=== PATIENT | female | born 1985 | race Caucasian/White ===

== ENCOUNTER 2017-04-06 02:20 | Emergency (ER) | payer MEDICAID ==
[~2017-04-06] VITALS: Ht 162.6 cm; Wt 99.8 kg
[2017-04-06 02:48] VITALS: BP 133/74
[2017-04-06 03:35] LABS: Basophils # (auto) 0 uL; Basophils % (auto) 0.4 % (0.0-2.0); CONDITION Y; Eosinophils # (auto) 0.1 uL; Eosinophils % (auto) 1.1 % (0.0-7.0); Hematocrit 42.2 % (36.0-46.0); Hemoglobin 14.1 g/dL (12.2-16.2); Lymphocytes # (auto) 1.6 uL; Lymphocytes % (auto) 12.4 % (10.0-50.0); Mean Corpuscular Hemoglobin 31.4 pg (28.0-32.0); Mean Corpuscular Hgb Conc. 33.3 g/dL (32.0-36.0); Mean Corpuscular Volume 94.4 fL (80.0-100.0); Mean Platelet Volume 9.2 fL (7.4-10.4); Monocytes # (auto) 0.6 uL; Monocytes % (auto) 4.4 % (0.0-12.0); Neutrophils # (auto) 10.6 uL; Neutrophils % (auto) 81.7 % (37.0-80.0); Platelet Count (auto) 264 10^3/uL (140-450); Red Cell Distribution Width 13.7 % (11.6-16.0); White Blood Cell 12.9 10^3/uL (4.4-10.8)
[2017-04-06 03:44] LABS: Albumin 3.4 g/dL (3.4-5.0); BUN/Creatinine Ratio 18.2; Calcium 8.3 mg/dL (8.5-10.1); Potassium 3.8 mmol/L (3.5-5.1)
[2017-04-06 03:46] LABS: Bilirubin, Total 0.3 mg/dL (0.2-1.0); Total Protein 7.2 g/dL (6.4-8.2)
== END 2017-04-06 12:25 | disposition left against medical advice (07) ==
LOC: EDBD 02:20 → ER 02:20
DX: R10.13 Epigastric pain (principal); Z53.21 Procedure and treatment not carried out due to patient leaving prior to being seen by health care provider
CPT/HCPCS: 36415; 80053; 82150; 83690; 85025

== ENCOUNTER 2019-08-11 15:12 | Emergency (ER) | payer MEDICAID ==
[~2019-08-11] VITALS: Ht 170.2 cm; Wt 113.4 kg
[2019-08-11 15:30] VITALS: BP 178/68
[2019-08-11] MEDS ORDERED: IBUPROFEN 800 MG TAB PO ONE (17:45)
== END 2019-08-11 17:59 | disposition home or self-care (01) ==
LOC: ER 15:12 → EDBD 15:12 → ER 17:58
DX: S16.1XXA Strain of muscle, fascia and tendon at neck level, initial encounter (principal); S46.912A Strain of unspecified muscle, fascia and tendon at shoulder and upper arm level, left arm, initial encounter; F17.210 Nicotine dependence, cigarettes, uncomplicated; V43.52XA Car driver injured in collision with other type car in traffic accident, initial encounter; Y93.I9 Activity, other involving external motion; Y92.488 Other paved roadways as the place of occurrence of the external cause; Y99.8 Other external cause status
CPT/HCPCS: 72040; 73030

== ENCOUNTER 2021-11-29 11:45 | Inpatient (IN) | payer MEDICAID ==
[~2021-11-29] VITALS: Ht 162.6 cm; Wt 89.2 kg
[2021-11-29] VITALS (7 sets, daily range): BP systolic 117–128; BP diastolic 55–72
[2021-11-29] MEDS ORDERED: SODIUM CHLORIDE 0.9% 1,000 ML IV ONE ×2 (12:45→13:45)
[2021-11-29] MEDS ORDERED: SODIUM CHLORIDE 0.9% 500 ML IVB ONE (12:45)
[2021-11-29] MEDS ORDERED: METOCLOPRAMIDE HCL 5MG/ml INJ 2ml VIAL IV ONE (12:45)
[2021-11-29 13:47] LABS: Urine Bacteria NONE SEEN /hpf (None Seen); Urine Blood Negative /uL (Negative); Urine Specific Gravity 1.018 (1.001-1.035); Urine WBC 1 /hpf (0 - 5)
[2021-11-29 13:48] LABS: Basophils # (auto) 0.1 10 ^3/uL (0-0.2); Basophils % (auto) 0.7 % (0.0-2.0); Eosinophils # (auto) 0 10 ^3/uL (0-0.8); Eosinophils % (auto) 0.4 % (0.0-7.0); Hematocrit 27.4 % (36.0-46.0); Hemoglobin 8.2 g/dL (12.2-16.2); Lymphocytes # (auto) 1.6 10 ^3/uL (0.4-5.4); Lymphocytes % (auto) 16.9 % (10.0-50.0); Mean Corpuscular Hemoglobin 19.5 pg (28.0-32.0); Mean Corpuscular Hgb Conc. 29.8 g/dL (32.0-36.0); Mean Corpuscular Volume 65.7 fL (80.0-100.0); Monocytes # (auto) 0.5 10 ^3/uL (0-1.3); Monocytes % (auto) 4.6 % (0.0-12.0); Neutrophils # (auto) 7.5 10 ^3/uL (1.6-8.6); Neutrophils % (auto) 77.4 % (37.0-80.0); Red Blood Cells 4.18 10^6/uL (4.0-5.20); White Blood Cell 9.7 10^3/uL (4.4-10.8)
[2021-11-29 14:03] LABS: Albumin 3.7 g/dL (3.4-5.0); BUN/Creatinine Ratio 20.6; Calcium 9.2 mg/dL (8.5-10.1); Potassium 4.6 mmol/L (3.5-5.1)
[2021-11-29 14:05] LABS: Bilirubin, Total 0.4 mg/dL (0.2-1.0); Total Protein 7.5 g/dL (6.4-8.2)
[2021-11-29 14:12] LABS: Magnesium 2.3 mg/dL (1.6-2.6)
[2021-11-29] MEDS ORDERED: MORPHINE SULFATE 4 MG/ML SYR/VIAL IV ONE ×3 (15:45→18:15)
[2021-11-29] MEDS ORDERED: IOHEXOL 300 MG/ML 100ML BOTTLE IJ ONE (15:47)
[2021-11-29] MEDS ORDERED: metroNIDAZOLE 500MG/100ML 100 ML IV ONE (17:00)
[2021-11-29] MEDS ORDERED: cefTRIAXone 1GM/50ML D5W 50 ML IV ONE (17:00)
[2021-11-29] MEDS ORDERED: NITROGLYCERIN 0.4 MG SL TAB SL PRN (17:15)
[2021-11-29] MEDS ORDERED: MORPHINE SULFATE INJECTION 2 MG/ML SYRG IV PRN (17:15)
[2021-11-29] MEDS: SODIUM CHLORIDE 0.9% 1,000 ML IV SCH ×2 (17:42→22:00)
[2021-11-29] MEDS ORDERED: ONDANSETRON HCL 4 MG/2 ML VIAL IV PRN (17:45)
[2021-11-29] MEDS ORDERED: ONDANSETRON HCL 4 MG/2 ML VIAL IV ONE (18:00)
[2021-11-29] MEDS ORDERED: PROMETHAZINE HCL 25 MG/ML 1ML IV ONE (18:15)
[2021-11-29] MEDS: PIPERACILLIN-TAZOB 3.375GM 100 ML IV SCH (22:00)
[2021-11-30] VITALS (37 sets, daily range): BP systolic 94–128; BP diastolic 43–81
[2021-11-30 05:44] LABS: Basophils # (auto) 0 10 ^3/uL (0-0.2); Eosinophils # (auto) 0.1 10 ^3/uL (0-0.8); Mean Corpuscular Hemoglobin 20.2 pg (28.0-32.0); Monocytes # (auto) 0.6 10 ^3/uL (0-1.3); Nucleated Red Blood Cells % 0.1 %; Red Blood Cells 3.48 10^6/uL (4.0-5.20)
[2021-11-30] MEDS: PIPERACILLIN-TAZOB 3.375GM 100 ML IV SCH ×3 (05:47→21:41)
[2021-11-30 05:49] LABS: Calcium 8.1 mg/dL (8.5-10.1); Potassium 3.3 mmol/L (3.5-5.1)
[2021-11-30 05:52] LABS: Bilirubin, Total 0.3 mg/dL (0.2-1.0); Total Protein 6.1 g/dL (6.4-8.2)
[2021-11-30 06:02] LABS: Basophils % (auto) 0.5 % (0.0-2.0); Eosinophils % (auto) 1.3 % (0.0-7.0); Hematocrit 22.6 % (36.0-46.0); Hemoglobin 7.1 g/dL (12.2-16.2); Lymphocytes # (auto) 2.1 10 ^3/uL (0.4-5.4); Mean Corpuscular Hgb Conc. 31.2 g/dL (32.0-36.0); Mean Corpuscular Volume 64.9 fL (80.0-100.0); Monocytes % (auto) 7.2 % (0.0-12.0); Neutrophils # (auto) 5.3 10 ^3/uL (1.6-8.6); Red Cell Distribution Width 18.2 % (11.8-14.3); White Blood Cell 8.2 10^3/uL (4.4-10.8)
[2021-11-30] MEDS: POTASSIUM CHL 10MEQ/50ML 50 ML IV SCH ×2 (08:02→08:45)
[2021-11-30] MEDS: MORPHINE SULFATE 4 MG/ML SYR/VIAL IV PRN ×2 (08:54→19:07)
[2021-11-30] MEDS: SODIUM CHLORIDE 0.9% 1,000 ML IV SCH ×3 (10:09→20:30)
[2021-11-30] MEDS ORDERED: D5W/ SOD CHL 0.9%/KCL 20MEQ 1,000 ML IV SCH (10:15)
[2021-11-30] MEDS ORDERED: GASTROGRAFIN 120 ML SOL ONE (16:05)
[2021-12-01] VITALS (11 sets, daily range): BP systolic 111–130; BP diastolic 55–76
[2021-12-01] MEDS: MORPHINE SULFATE 4 MG/ML SYR/VIAL IV PRN (03:01)
[2021-12-01 04:51] LABS: Basophils # (auto) 0.1 10 ^3/uL (0-0.2); Eosinophils # (auto) 0.1 10 ^3/uL (0-0.8); Eosinophils % (auto) 1.9 % (0.0-7.0); Hemoglobin 7.2 g/dL (12.2-16.2); Mean Corpuscular Hemoglobin 19.9 pg (28.0-32.0); Monocytes # (auto) 0.5 10 ^3/uL (0-1.3); Red Blood Cells 3.61 10^6/uL (4.0-5.20)
[2021-12-01 04:53] LABS: Basophils % (auto) 0.9 % (0.0-2.0); Hematocrit 23.5 % (36.0-46.0); Lymphocytes # (auto) 2.6 10 ^3/uL (0.4-5.4); Lymphocytes % (auto) 35.2 % (10.0-50.0); Mean Corpuscular Hgb Conc. 30.6 g/dL (32.0-36.0); Mean Corpuscular Volume 65.1 fL (80.0-100.0); Monocytes % (auto) 6.7 % (0.0-12.0); Neutrophils % (auto) 55.3 % (37.0-80.0); Red Cell Distribution Width 18.7 % (11.8-14.3); White Blood Cell 7.3 10^3/uL (4.4-10.8)
[2021-12-01 05:09] LABS: Potassium 3.2 mmol/L (3.5-5.1)
[2021-12-01 05:14] LABS: BUN/Creatinine Ratio 17.8; Calcium 7.9 mg/dL (8.5-10.1)
[2021-12-01] MEDS: PIPERACILLIN-TAZOB 3.375GM 100 ML IV SCH ×2 (06:30→13:18)
[2021-12-01] MEDS ORDERED: POTASSIUM CHL 20 Meq TABLET PO ONE (10:30)
[2021-12-01] MEDS ORDERED: METR500T PO (14:05)
[2021-12-02] MEDS ORDERED: POTASSIUM CHL 20 Meq TABLET PO SCH (10:00)
== END 2021-12-01 15:35 | disposition home or self-care (01) | DRG 247 ==
LOC: ER 11:45 → TELE 17:02 → DOU IN ICU 22:22
PROVIDERS: ADMIT Internal Medicine; ATTEND Internal Medicine Pulmonary Disease
PROC: 0D9670Z Drainage of Stomach with Drainage Device, Via Natural or Artificial Opening (ICD-10-PCS; principal; 2021-11-29)
DX: K56.50 Intestinal adhesions [bands], unspecified as to partial versus complete obstruction (principal); K63.1 Perforation of intestine (nontraumatic); D64.9 Anemia, unspecified; F12.90 Cannabis use, unspecified, uncomplicated; F17.210 Nicotine dependence, cigarettes, uncomplicated; R53.81 Other malaise; Z20.822 Contact with and (suspected) exposure to COVID-19; Z82.49 Family history of ischemic heart disease and other diseases of the circulatory system; Z98.84 Bariatric surgery status; Z72.89 Other problems related to lifestyle
CPT/HCPCS: 36415; 71045; 71046; 74177; 74250; 80048; 80053; 81001; 83605; 83690; 83735; 84702; 85025; 85379; 86850; 86900; 86901; 87081; 93005; 96361; 96365; 96368; 96375; G0378; J0696; J2405; J2543; J3490

== ENCOUNTER 2024-12-17 22:54 | Emergency (ER) | payer MEDICAID ==
[~2024-12-17] VITALS: Ht 162.6 cm; Wt 90.9 kg
[~2024-12-17 22:54] MED LIST: METR500T PO
[2024-12-17 23:57] VITALS: BP 126/73; PULSE 83; RESP 18; TEMP 97.7; O2SAT 96
[2024-12-18] MEDS ORDERED: CYCL-614 PO (00:49)
[2024-12-18] MEDS ORDERED: ACET500T58 PO (00:49)
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
== END 2024-12-18 01:00 | disposition home or self-care (01) ==
LOC: EDBD 22:54 → ER 22:54
DX: S16.1XXA Strain of muscle, fascia and tendon at neck level, initial encounter (principal); S39.012A Strain of muscle, fascia and tendon of lower back, initial encounter; F17.210 Nicotine dependence, cigarettes, uncomplicated; Z98.84 Bariatric surgery status; Z98.890 Other specified postprocedural states; V43.52XA Car driver injured in collision with other type car in traffic accident, initial encounter; Y93.I9 Activity, other involving external motion; Y92.488 Other paved roadways as the place of occurrence of the external cause; Y99.8 Other external cause status

== ENCOUNTER 2025-02-25 14:00 | Emergency (ER) | payer MEDICAID ==
[~2025-02-25] VITALS: Ht 162.6 cm; Wt 93.0 kg
[2025-02-25 14:00] VITALS: TEMP 98.5
[~2025-02-25 14:00] MED LIST changes: +ACET500T58 PO; +CYCL-614 PO
[2025-02-25] MEDS ORDERED: METH4PAK PO (14:25)
--- NOTE | 2025-02-25 14:29 | ED.PDOC ---
History of Present Illness HPI Comments 39-year-old female who comes with chief complaint of right-sided facial droop. The patient states that the symptoms started last night at approximately 8:00 p.m.. The patient is complaining of some nausea as well as headache. The patient states of the headache as a 7/10. The patient denies any other complaints at this time. Chief Complaint: Face pain Time Seen by MD: 14:11 Primary Care Provider: CHIRAG Haque Notes: Nurses Notes, Medications, Allergies (No allergy to medications) Allergies: Coded Allergies: NO KNOWN ALLERGIES (Unverified , 08/27/14) Home Meds Active Scripts Methylprednisolone (Medrol Dosepak) 4 Mg Seth, 4 MG PO UD, #21 TAB UAD Prov:JERRY RODRIGUEZ MD 02/25/25 Cyclobenzaprine HCl (Cyclobenzaprine Hydrochlo) 5 Mg Tab, 5 MG PO QHSP, #14 TAB 0 Refills Prov:YO PEREZ 12/18/24 Acetaminophen (Acetaminophen) 500 Mg Tab, 500 MG PO Q4HPRN, #30 TAB 0 Refills Prov:YO PEREZ 12/18/24 Metronidazole (Flagyl) 500 Mg Tab, 500 MG PO TID for 7 Days, #21 TAB Prov:DEIDRE HA MD 12/01/21 Information Source: Patient Mode of Arrival: Ambulatory Severity: Moderate Timing: Hours Duration: Since onset Prehospital treatment: None Location: Right-sided facial droop but no sign if any upper or lower extremity weakness Past Medical History PAST MEDICAL HISTORY: Anxiety, Depression Past Medical History (Other): Chronic back pain Surgical History: Hernia Repair Surgical History (Other): Left ACL, gastric bypass surgery DOG WALKER History: No Pertinent DOG WALKER History Family History Family History: No family hx of Cancer, No family hx of DM, No family hx of Heart rui Social History Smoker: Cigarettes, Less Than 1 Pack/Day Alcohol: Denies ETOH Use Drugs: Marijuana Lives In: Home Constitutional: denies: chills, diaphoresis, fatigue, fever, malaise, sweats, weakness, others EENTM: denies: blurred vision, double vision, ear bleeding, ear discharge, ear drainage, ear pain, ear ringing, eye pain, eye redness, hearing loss, mouth pain, mouth swelling, nasal discharge, nose bleeding, nose congestion, nose pain, photophobia, tearing, throat pain, throat swelling, voice changes, others Respiratory: denies: cough, hemoptysis, orthopnea, SOB at rest, shortness of breath, SOB with excertion, stridor, wheezing, others Cardiovascular: denies: chest pain, dizzy spells, diaphoresis, Dyspnea on exertion, edema, irregular heart beat, left arm pain, lightheadedness, palpitations, PND, syncope, others Gastrointestinal: denies: abdomen distended, abdominal pain, blood streaked bowels, constipated, diarrhea, dysphagia, difficulty swallowing, hematemesis, melena, nausea, poor appetite, poor fluid intake, rectal bleeding, rectal pain, vomiting, others Genitourinary: denies: abnormal vagina bleeding, burning, dyspareunia, dysuria, flank pain, frequency, hematuria, incontinence, pain, , vagina discharge, urgency, others Neurological: reports: others (Right-sided facial droop); denies: dizziness, fainting, headache, left sided numbness, left sided weakness, numbness, paresthesia, pre-existing deficit, right sided numbness, right sided weakness, seizure, speech problems, tingling, tremors, weakness Musculoskeletal: denies: back pain, gout, joint pain, joint swelling, muscle pain, muscle stiffness, neck pain, others Integumetry: denies: bruises, change in color, change in hair/nails, dryness, laceration, lesions, lumps, rash, wounds, others Allergic/Immunocompromised: denies: Difficulty Healing, Frequent Infections, Hives, Itching, others Hematologic/Lymphatic: denies: anemia, blood clots, easy bleeding, easy bruising, swollen glands, others Endocrine: denies: excessive hunger, excessive sweating, excessive thirst, excessive urination, flushing, intolerance to cold, intolerance to heat, unexplained weight gain, unexplained weight loss, others Psychiatric: denies: anxiety, bipolar disorder, depression, hopeless, panic disorder, schizophrenia, sleepless, suicidal, others Physical Exam General Appearance: No Apparent Distress HEENT: Normal ENT Inspection, Pharynx Normal, TMs Normal Neck: Full Range of Motion, Non-Tender, Normal, Normal Inspection Respiratory: Chest Non-Tender, Lungs Clear, No Accessory Muscle Use, No Respiratory Distress, Normal Breath Sounds Cardiovascular: No Edema, No JVD, No Murmur, No Gallop, Normal Peripheral Pulses, Regular Rate/Rhythm Breast Exam: Deferred Gastrointestinal: No Organomegaly, Non Tender, No Pulsatile Mass, Normal Bowel Sounds, Soft Genitalia: Deferred Pelvic: Deferred Rectal: Deferred Extremities: No calf tenderness, Normal capillary refill, Normal inspection, Normal range of motion, Non-tender, No pedal edema Musculoskeletal : Apperance: Normal Neurologic: Alert, Facial Droop (Right-sided facial droop), No Motor Deficits, Normal Affect, Normal Mood, No Sensory Deficits Cerebellar Function: Normal Reflexes: Normal Skin: Dry, Normal Color, Warm Lymphatic: No Adenopathy Was a procedure done? Was a procedure done?: No EKG EKG : Pulse Rate (adult): 73 [place]: Normal Cardiac Rhythm: NSR ST: Nonsp Differential Dx Considerations may include: Rouse's palsy, CVA, generalized weakness X-Ray, Labs, Meds, VS Vital Signs Date Time Temp Pulse Resp B/P (MAP) Pulse Ox O2 Delivery O2 Flow Rate FiO2 02/25/25 14:29 73 02/25/25 14:00 98.5 82 17 142/86 (104) 98 98.5 Lab Test 02/25/25 14:15 Range/Units POC Glucose 65 L 70-106 mg/dl Cat scan of the head shows: The cat scan of the head is negative The patient has been placed on a Medrol Dosepak The patient will return to the emergency department with the condition worsens. The patient understands and agrees with the management. We do not feel that this is a stroke at this time Images Reviewed?: Images reviewed and evaluated by me Time of 1ST Reevaluation: 14:29 Reevaluation 1ST: Unchanged Patient Education/Counseling: Diagnosis, Treatment, Prognosis, Need For Follow Up Family Education/Counseling: No Family Present Departure 1 Departure Time of Disposition: 15:29 Impression: Primary Impression: Rouse's palsy Disposition: 01 HOME / SELF CARE / HOMELESS Condition: Fair e-Prescriptions Methylprednisolone (Medrol Dosepak) 4 Mg Seth 4 MG PO UD, #21 TAB UAD Prov: JERRY RODRIGUEZ MD 02/25/25 Discharged With: Self Critical Care Note Critical Care Time?: No Stability Stability form required: No Heart Score Heart Score: Heart Score Response (Comments) Value History N/A 0 EKG N/A 0 Age N/A 0 Risk Factors N/A 0 Troponin N/A 0 Total 0 JERRY RODRIGUEZ MD Feb 25, 2025 14:29
--- NOTE | 2025-02-25 15:08 | DVH ---
EXAM: CT HEAD WITHOUT CONTRAST HISTORY: Right-sided facial droop COMPARISON: None TECHNIQUE: Axial images of the head were obtained and reformatted in coronal and sagittal planes. All CT scans at this medical facility are performed using dose modulation techniques as appropriate t o a performed exam including the following: Automated exposure control was utilized; adjustment of th e MA and/or KV according to patient size; and use of iterative reconstruction technique. CT Dose: CTDI volume is 54.21 mGy. Dose-length product is 959.95 mGy*cm FINDINGS: There is no evidence of acute intracranial hemorrhage, mass, mass effect midline shift. There is no h ydrocephalus or extra-axial fluid collection. [place]-white matter differentiation is maintained. The visualized paranasal sinuses and mastoid air cells are clear. The calvarium is intact. IMPRESSION: 1. No acute intracranial process. HS:Y
[2025-02-25 16:25] VITALS: BP 133/86; PULSE 68; RESP 18; O2SAT 98
== END 2025-02-25 16:29 | disposition home or self-care (01) ==
LOC: ER 14:00
DX: G51.0 Bell's palsy (principal); G89.29 Other chronic pain; M54.9 Dorsalgia, unspecified; F41.9 Anxiety disorder, unspecified; F32.A Depression, unspecified; F17.210 Nicotine dependence, cigarettes, uncomplicated; Z98.84 Bariatric surgery status; Z98.890 Other specified postprocedural states; Z79.899 Other long term (current) drug therapy
CPT/HCPCS: 70450; 82947; 82962